=== PATIENT | female | born 1995 | race African-American/Black ===

== ENCOUNTER 2018-01-01 20:05 | Emergency (ER) | payer MEDICAID ==
[~2018-01-01] VITALS: Ht 160 cm; Wt 61.0 kg
[2018-01-01 22:27] LABS: CLARITY URINE CLEAR (CLEAR); COLOR URINE YELLOW (YELLOW); KETONES URINE NEGATIVE (NEGATIVE); LEUKOCYTE ESTERASE URINE NEGATIVE (NEGATIVE); NITRITE URINE NEGATIVE (NEGATIVE); OCCULT BLOOD URINE NEGATIVE (NEGATIVE); PH URINE 6.5 (4.5-8.0); PROTEIN URINE NEGATIVE (NEGATIVE); SPECIFIC GRAVITY URINE 1.019 (1.005-1.030)
[2018-01-01] MEDS ORDERED: FLUCONAZOLE 200MG TABLET PO ONE (23:30)
[2018-01-01] MEDS ORDERED: IBUPROFEN 600MG TABLET PO ONE (23:30)
[2018-01-02 00:10] VITALS: BP 105/87
== END 2018-01-02 02:23 | disposition home or self-care (01) ==
LOC: ER 01-02 00:39
DX: B37.3 Candidiasis of vulva and vagina (principal); R03.0 Elevated blood-pressure reading, without diagnosis of hypertension; F17.200 Nicotine dependence, unspecified, uncomplicated; Z98.890 Other specified postprocedural states
CPT/HCPCS: 81003; 81025; 99283; Z7610